=== PATIENT | female | born 1990 | race Caucasian/White ===

== ENCOUNTER 2019-03-22 16:08 | Outpatient (CLI) | payer OTHER ==
[~2019-03-22] VITALS: Ht 180.3 cm; Wt 84.5 kg
[2019-03-22 16:41] VITALS: BP 111/64
[2019-03-22] MEDS ORDERED: PREN1TAB60 PO (17:09)
== END 2019-03-22 23:59 | disposition home or self-care (01) ==
LOC: LDOP 16:08
PROVIDERS: ATTEND Obstetrics & Gynecology
DX: O36.8130 Decreased fetal movements, third trimester, not applicable or unspecified (principal); Z3A.29 29 weeks gestation of pregnancy
CPT/HCPCS: 59025; 99201; G0463

== ENCOUNTER 2019-06-02 16:10 | Inpatient (IN) | payer OTHER ==
[~2019-06-02] VITALS: Ht 180.3 cm; Wt 94.0 kg
[~2019-06-02 16:10] MED LIST: PREN1TAB60 PO
[2019-06-07] MEDS ORDERED: OXYTOCIN 30U/ 0.9% NaCL 500ML 500 ML IV ONE (10:35)
[2019-06-07] MEDS ORDERED: D5%-LACTATED RINGERS 1,000 ML IV SCH (10:35)
[2019-06-07] MEDS ORDERED: OXYTOCIN 30U/ 0.9% NaCL 500ML 500 ML IV PRN (10:35)
[2019-06-07] MEDS ORDERED: PLEASE ENTER ALLERGIES MC SCH (11:00)
[2019-06-07] MEDS ORDERED: TERBUTALINE 1 MG/ML, 1ML SQ PRN (11:00)
[2019-06-07] MEDS ORDERED: CALCIUM CARBONATE 500 MG TAB.CHEW PO PRN (11:00)
[2019-06-07] MEDS ORDERED: METOCLOPRAMIDE 5 MG/ML, 2ML IVPush PRN (11:00)
[2019-06-07] MEDS ORDERED: FENTANYL PF 100 MCG/2ML IV PRN (11:00)
[2019-06-07] MEDS ORDERED: PLEASE ENTER HEIGHT AND WEIGHT MC SCH (11:00)
[2019-06-07] MEDS ORDERED: ALUMINUM/MAG/SIMETHICONE 30 ML UDC PO PRN (11:00)
[2019-06-07] MEDS ORDERED: FENTANYL PF 100 MCG/2ML IVPush PRN (11:00)
[2019-06-07] MEDS ORDERED: MISOPROSTOL 25 MCG TABLET VG PRN (11:00)
[2019-06-07] MEDS ORDERED: ONDANSETRON 2MG/ML, 2ML IVPush PRN (11:00)
[2019-06-07] MEDS ORDERED: TERBUTALINE 1 MG/ML, 1ML IVPush PRN (11:00)
[2019-06-07] MEDS ORDERED: SODIUM CITRATE/CITRIC ACID 30 ML UDC PO PRN (11:00)
[2019-06-07 11:08] LABS: BASOPHILS # (AUTO) 0.04 x10^3/uL (0-0.1); BASOPHILS % (AUTO) 0 % (0-1); EOSINOPHILS # (AUTO) 0.04 x10^3/uL (0-0.4); EOSINOPHILS % (AUTO) 1 % (1-7); LYMPHOCYTES # (AUTO) 2.07 x10^3/uL (1-3.4); LYMPHOCYTES % (AUTO) 23 % (22-44); MD NO; MEAN CORPUSCULAR HEMOGLOBIN 31.9 pg (27.0-34.8); MEAN CORPUSCULAR HGB CONC 34.1 g/dL (32.4-35.8); MEAN CORPUSCULAR VOLUME 93.8 fL (80-100); MEAN PLATELET VOLUME 8.6 fL (7.4-10.4); MONOCYTES # (AUTO) 0.82 x10^3/uL (0.2-0.8); MONOCYTES % (AUTO) 9 % (2-9); NEUTROPHILS # (AUTO) 5.95 x10^3/uL (1.8-6.8); NEUTROPHILS % (AUTO) 67 % (42-75); PLATELET COUNT 232 x10^3/uL (130-400); RED BLOOD COUNT 4.63 x10^6/uL (3.82-5.3); RED CELL DISTRIBUTION WIDTH 12.6 % (9.6-15.2)
[2019-06-07] MEDS ORDERED: LIDOCAINE 1%, 20ML ONE (11:43)
[2019-06-07] MEDS ORDERED: MISOPROSTOL 25 MCG TABLET ONE ×2 (11:43→15:40)
[2019-06-07] MEDS ORDERED: MISOPROSTOL 200 MCG TABLET ONE (11:43)
[2019-06-07] MEDS ORDERED: OXYTOCIN 30U/ 0.9% NaCL 500ML 500 ML ONE (11:43)
[2019-06-07] MEDS: LACTATED RINGERS 1,000 ML IV SCH ×3 (16:33→20:31)
[2019-06-07] MEDS ORDERED: FENTANYL/BUPIV./NS/PF 250 ML EPIDCONT SCH ×2 (19:25→20:31)
[2019-06-07] MEDS ORDERED: LACTATED RINGERS 1,000 ML IVBOLUS PRN ×2 (19:30→21:00)
[2019-06-07] MEDS ORDERED: FENTANYL PF 500 MCG, BUPIVACAINE/PF 0.5%, 30ML 62.5 ML in SODIUM CHLORIDE 0.9% 177.5 ML EPIDCONT SCH (20:00)
[2019-06-07] MEDS ORDERED: BUPIVACAINE 0.25% ONE (20:05)
[2019-06-07] MEDS ORDERED: BUPIVACAINE/PF 0.25% ONE (20:10)
[2019-06-07] MEDS ORDERED: FENTANYL/BUPIV./NS/PF 250 ML EPIDCONT ONE (20:10)
[2019-06-07] MEDS ORDERED: LIDOCAINE/PF 1.5%-EPI 1:200K, 30ML ONE (20:10)
[2019-06-07] MEDS ORDERED: TERBUTALINE 1 MG/ML, 1ML ONE (20:33)
[2019-06-07] MEDS ORDERED: EPHEDRINE 50 MG/ML, 1ML ONE (20:37)
[2019-06-07] MEDS ORDERED: EPHEDRINE 50 MG/ML, 1ML IVPush PRN (21:00)
[2019-06-08] MEDS ORDERED: OXYTOCIN 30U/ 0.9% NaCL 500ML 500 ML IV SCH (02:39)
[2019-06-08] MEDS ORDERED: DOCUSATE 100 MG CAPSULE PO PRN ×3 (03:00→13:00)
[2019-06-08] MEDS ORDERED: MISOPROSTOL 200 MCG TABLET PR PRN (03:00)
[2019-06-08] MEDS ORDERED: SIMETHICONE 80 MG CHEW TAB PO PRN ×3 (03:00→13:00)
[2019-06-08] MEDS ORDERED: OXYTOCIN 30U/ 0.9% NaCL 500ML 500 ML ONE (03:29)
[2019-06-08] MEDS: OXYTOCIN 30U/ 0.9% NaCL 500ML 500 ML IV SCH ×2 (03:31→12:39)
[2019-06-08] MEDS: LACTATED RINGERS 1,000 ML IV SCH ×3 (03:32→12:31)
[2019-06-08 05:00] VITALS: BP 103/66
[2019-06-08 07:30] VITALS: BP 124/79
[2019-06-08] MEDS: PRENATAL VIT/IRON/FA 1 EACH TABLET PO SCH (09:00)
[2019-06-08] MEDS ORDERED: PRENATAL VIT/IRON/FA 1 EACH TABLET PO SCH (09:00)
[2019-06-08 10:40] LABS: MEAN CORPUSCULAR HEMOGLOBIN 32.5 pg (27.0-34.8); MEAN CORPUSCULAR HGB CONC 34.6 g/dL (32.4-35.8); MEAN PLATELET VOLUME 8.2 fL (7.4-10.4); PLATELET COUNT 197 x10^3/uL (130-400); RED BLOOD COUNT 3.88 x10^6/uL (3.82-5.3); RED CELL DISTRIBUTION WIDTH 12.7 % (9.6-15.2)
[2019-06-08 11:34] LABS: BASOPHILS # (AUTO) 0.05 x10^3/uL (0-0.1); BASOPHILS % (AUTO) 0 % (0-1); EOSINOPHILS # (AUTO) 0.14 x10^3/uL (0-0.4); EOSINOPHILS % (AUTO) 1 % (1-7); LYMPHOCYTES # (AUTO) 1.73 x10^3/uL (1-3.4); LYMPHOCYTES % (AUTO) 12 % (22-44); MD SCAN; MONOCYTES # (AUTO) 0.75 x10^3/uL (0.2-0.8); MONOCYTES % (AUTO) 5 % (2-9); NEUTROPHILS # (AUTO) 11.59 x10^3/uL (1.8-6.8); NEUTROPHILS % (AUTO) 81 % (42-75)
[2019-06-08 12:00] VITALS: BP 118/68
[2019-06-08] MEDS ORDERED: IBUPROFEN 600 MG TABLET PO PRN (13:00)
[2019-06-08] MEDS ORDERED: OXYcodone/APAP 5/325MG TABLET PO PRN ×2 (13:00)
[2019-06-08] MEDS ORDERED: ACETAMINOPHEN 325 MG TABLET PO PRN ×2 (13:00)
[2019-06-08 16:30] VITALS: BP 132/68
[2019-06-08 20:00] VITALS: BP 124/86
[2019-06-08 23:49] VITALS: BP 122/73
[2019-06-09] MEDS ORDERED: IBUP-1222 PO (07:20)
[2019-06-09] MEDS: PRENATAL VIT/IRON/FA 1 EACH TABLET PO SCH (09:00)
== END 2019-06-09 10:15 | disposition home or self-care (01) | DRG 768 ==
LOC: EDBD → LDIP 06-07 10:33 → 2NW 06-08 04:58
PROVIDERS: ADMIT Obstetrics & Gynecology; ATTEND Obstetrics & Gynecology
PROC: 10H07YZ Insertion of Other Device into Products of Conception, Via Natural or Artificial Opening (ICD-10-PCS; 2019-06-07)
PROC: 10E0XZZ Delivery of Products of Conception, External Approach (ICD-10-PCS; principal; 2019-06-08)
PROC: 0TQDXZZ Repair Urethra, External Approach (ICD-10-PCS; 2019-06-08)
PROC: 3E0R3BZ Introduction of Anesthetic Agent into Spinal Canal, Percutaneous Approach (ICD-10-PCS; 2019-06-08)
PROC: 00HU33Z Insertion of Infusion Device into Spinal Canal, Percutaneous Approach (ICD-10-PCS; 2019-06-08)
DX: O71.5 Other obstetric injury to pelvic organs (principal); Z37.0 Single live birth; Z3A.40 40 weeks gestation of pregnancy
CPT/HCPCS: 36415; 85025; 86592; 86850; 86900; G0378; J3490; J2590; J3010; J3105; J7120; J7121